=== PATIENT | male | born 1975 | race Caucasian/White ===

== ENCOUNTER 2016-11-22 09:19 | Emergency (ER) | payer OTHER ==
[2016-11-22 09:25] VITALS: BP 164/96; PULSE 88; RESP 17; TEMP 97.9
--- NOTE | 2016-11-22 09:44 | ED ---
General Adult HPI - General Chief complaint: Dental/Oral Stated complaint: DENTAL PAIN Time Seen by Provider: 11/22/16 09:31 Source: patient, RN notes reviewed, old records reviewed Mode of arrival: ambulatory Limitations: no limitations - History of Present Illness Initial comments: This is a 41-year-old male the ER for evaluation. This patient today presents for evaluation of dental pain. Severe dental pain with history of dental disease. Multiple tooth extractions in the past. Patient states pain is progressively worse 2 days no fevers no difficulty swallowing or difficulty opening his mouth, no swelling of his face. Patient is taking no medicines medications at home for pain - Related Data Home Medications Medication Instructions Recorded Confirmed No Known Home Medications [No 01/29/16 01/29/16 Known Home Medications] Allergies Allergy/AdvReac Type Severity Reaction Status Date / Time No Known Allergies Allergy Verified 01/29/16 15:05 Review of Systems ROS Statement: Those systems with pertinent positive or pertinent negative responses have been documented in the HPI. ROS Other: All systems not noted in ROS Statement are negative. Past Medical History Additional Past Medical History / Comment(s): kidney stones History of Any Multi-Drug Resistant Organisms: None Reported Additional Past Surgical History / Comment(s): lithrotripsy Past Psychological History: No Psychological Hx Reported Smoking Status: Current every day smoker Past Alcohol Use History: Occasional Past Drug Use History: None Reported General Exam Limitations: no limitations General appearance: alert, in no apparent distress Head exam: Present: atraumatic, normocephalic, normal inspection Eye exam: Present: normal appearance, PERRL, EOMI. Absent: scleral icterus, conjunctival injection, periorbital swelling ENT exam: Present: normal exam, mucous membranes moist, other (Diffuse dental caries, left upper molar tenderness) Neck exam: Present: normal inspection. Absent: tenderness, meningismus, lymphadenopathy Respiratory exam: Present: normal lung sounds bilaterally. Absent: respiratory distress, wheezes, rales, rhonchi, stridor Cardiovascular Exam: Present: regular rate, normal rhythm, normal heart sounds. Absent: systolic murmur, diastolic murmur, rubs, gallop, clicks GI/Abdominal exam: Present: soft, normal bowel sounds. Absent: distended, tenderness, guarding, rebound, rigid Extremities exam: Present: normal inspection, full ROM, normal capillary refill. Absent: tenderness, pedal edema, joint swelling, calf tenderness Back exam: Present: normal inspection Neurological exam: Present: alert, oriented X3, CN II-XII intact Psychiatric exam: Present: normal affect, normal mood Skin exam: Present: warm, dry, intact, normal color. Absent: rash Course Vital Signs 11/22/16 09:23 Temperature 97.9 F Pulse Rate 88 Respiratory 17 Rate Blood Pressure 164/96 O2 Sat by Pulse 99 Oximetry - Reevaluation(s) Reevaluation #1: 11/22/16 09:43 Pain is improved Medical Decision Making - Medical Decision Making 41 male to ED co dental pain with dental caries, presumed dental abscess w no collection, patient will dc with pain control and abx therapy Disposition Clinical Impression: Dental caries, Toothache, Dental abscess Disposition: HOME SELF-CARE Instructions: Dental Caries (ED), Dental Abscess (ED)
[2016-11-22] MEDS ORDERED: PENICILLIN VK 500MG STARTER 4 TAB BTL PO STA (09:50)
[2016-11-22] MEDS ORDERED: Acetaminophen-Codeine 300-30mg TAB PO STA (09:50)
[2016-11-22] MEDS ORDERED: PENICILLIN V POTASSIUM 250 MG TAB PO STA (09:50)
== END 2016-11-22 10:05 | disposition home or self-care (01) ==
LOC: EC 09:19
DX: K02.9 Dental caries, unspecified (principal); K04.7 Periapical abscess without sinus; F17.200 Nicotine dependence, unspecified, uncomplicated
CPT/HCPCS: 99282

== ENCOUNTER 2016-11-30 23:16 | Emergency (ER) | payer OTHER ==
[2016-11-30 23:25] VITALS: BP 158/90; PULSE 92; RESP 20; TEMP 97.9
[2016-11-30] MEDS ORDERED: HYDROcodone/APAP 5-325MG 1 EACH TAB PO STA (23:45)
--- NOTE | 2016-11-30 23:50 | ED ---
ENT HPI - General Chief complaint: Dental/Oral Stated complaint: Dental Pain-Revisit Time Seen by Provider: 11/30/16 23:41 Source: patient, RN notes reviewed Mode of arrival: ambulatory Limitations: no limitations - History of Present Illness Initial comments: 41-year-old male presents emergency 5 chief complaint of right-sided dental pain. Patient states this started about 2 days ago. Patient states he has a chronic history of dental problems. Patient states that it's use number what appears to be 29. Patient states he has any fever chills. There is no radiation the neck and no inability to open and close the mouth. Patient states there hasn't been any other symptoms in the patient. Patient states he does have a dense plan on Saturday.Patient denies any recent fever, chills, shortness of breath, chest pain, back pain, abdominal pain, nausea vomiting, numbness or tingling, dysuria or hematuria, constipation or diarrhea, headaches or visual changes, or any other current symptoms. - Related Data Home Medications Medication Instructions Recorded Confirmed Ibuprofen [Motrin] 200 - 400 mg PO Q6HR PRN 11/22/16 11/30/16 Previous Rx's Medication Instructions Recorded Acetaminophen with Codeine 1 tab PO Q4H PRN #20 tab 11/22/16 [Tylenol w/codeine #3] Penicillin V Potassium [Pen Vee K] 500 mg PO QID #40 tab 11/22/16 Hydrocodone/Acetaminophen [[place] 1 each PO Q6HR PRN #20 tab 11/30/16 5-325] Penicillin V Potassium [Pen Vee K] 500 mg PO TID #40 tab 11/30/16 Allergies Allergy/AdvReac Type Severity Reaction Status Date / Time No Known Allergies Allergy Verified 11/30/16 23:26 Review of Systems ROS Statement: Those systems with pertinent positive or pertinent negative responses have been documented in the HPI. ROS Other: All systems not noted in ROS Statement are negative. Past Medical History Additional Past Medical History / Comment(s): kidney stones History of Any Multi-Drug Resistant Organisms: None Reported Additional Past Surgical History / Comment(s): lithrotripsy Past Psychological History: No Psychological Hx Reported Smoking Status: Current every day smoker Past Alcohol Use History: Occasional Past Drug Use History: None Reported General Exam Limitations: no limitations General appearance: alert, in no apparent distress Expanded Ear exam: Present: normal external inspection Mouth exam: Present: normal external inspection Teeth exam: Present: dental caries (29), fractured tooth # (29), dental tenderness # (29), other (No abscess). Absent: gingival enlargement Neck exam: Present: normal inspection. Absent: tenderness, meningismus, lymphadenopathy Respiratory exam: Present: normal lung sounds bilaterally. Absent: respiratory distress, wheezes, rales, rhonchi, stridor Cardiovascular Exam: Present: regular rate, normal rhythm, normal heart sounds. Absent: systolic murmur, diastolic murmur, rubs, gallop, clicks Neurological exam: Present: alert, oriented X3, CN II-XII intact. Absent: motor sensory deficit Psychiatric exam: Present: normal affect, normal mood Skin exam: Present: warm, dry, intact, normal color. Absent: rash Course Vital Signs 11/30/16 23:24 Temperature 97.9 F Pulse Rate 92 Respiratory 20 Rate Blood Pressure 158/90 O2 Sat by Pulse 99 Oximetry Medical Decision Making - Medical Decision Making 41-year-old male presents emergency Department chief complaint of right-sided dental pain. At this time we will continue pain medication and antibiotics for the patient. As discussed. Dentist and return parameters. Patient stated he understood all questions were answered. He'll be discharged. Disposition Clinical Impression: Dental caries, Toothache Disposition: HOME SELF-CARE Condition: Stable Instructions: Dental Caries (ED) Additional Instructions: Please use medication as discussed. Please follow up with family doctor if symptoms have not improved over the next two days. Please return to the emergency room if your symptoms increase or worsen or for any other concerns. Prescriptions: Hydrocodone/Acetaminophen [[place] 5-325] 1 each PO Q6HR PRN #20 tab PRN Reason: Pain Penicillin V Potassium [Pen Vee K] 500 mg PO TID #40 tab Referrals: None,Stated [Primary Care Provider] - 1-2 days Maris Watts MD [STAFF PHYSICIAN] - 1-2 days Time of Disposition: 23:49
== END 2016-12-01 00:13 | disposition home or self-care (01) ==
LOC: EC 23:16
DX: K02.9 Dental caries, unspecified (principal); F17.200 Nicotine dependence, unspecified, uncomplicated
CPT/HCPCS: 99282

== ENCOUNTER 2017-02-24 11:06 | Emergency (ER) | payer OTHER ==
[2017-02-24] MEDS ORDERED: KETOROLAC 60 MG/2 ML VIAL IM STA (12:07)
[2017-02-24] MEDS ORDERED: DIAZEPAM 5 MG TAB PO STA (12:08)
[2017-02-24 12:23] VITALS: RESP 16; TEMP 98.4
--- NOTE | 2017-02-24 12:28 | ED ---
General Adult HPI - General Chief complaint: Back Pain/Injury Stated complaint: back pain Time Seen by Provider: 02/24/17 11:51 Source: patient, RN notes reviewed Mode of arrival: ambulatory Limitations: no limitations - History of Present Illness Initial comments: Patient 42-year-old male who presents emergency room today with a chief complaint of increased lower back pain over the last 6 days. He does admit some radiation down to the right leg to approximately the right knee area. Denies any bowel or bladder incontinence or retention. Denies any saddle anesthesia. Patient does admit that he was jumping out of the back of pickup truck landing flat-footed on his feet and felt this pain. Patient denies any other complaints or symptoms. States been trying ibuprofen at home with little relief the symptoms. She has not taken anything for the pain yet today. Patient denies any recent fever, chills, shortness of breath, chest pain, abdominal pain, nausea or vomiting, dysuria or hematuria, constipation or diarrhea, headaches or visual changes, or any other complaints. - Related Data Home Medications Medication Instructions Recorded Confirmed Ibuprofen [Motrin] 200 - 400 mg PO Q6HR PRN 11/22/16 11/30/16 Previous Rx's Medication Instructions Recorded Acetaminophen with Codeine 1 tab PO Q4H PRN #20 tab 11/22/16 [Tylenol w/codeine #3] Penicillin V Potassium [Pen Vee K] 500 mg PO QID #40 tab 11/22/16 Hydrocodone/Acetaminophen [[place] 1 each PO Q6HR PRN #20 tab 11/30/16 5-325] Penicillin V Potassium [Pen Vee K] 500 mg PO TID #40 tab 11/30/16 Baclofen 10 mg PO TID #20 tab 02/24/17 Ibuprofen [Motrin] 800 mg PO Q8HR #30 tab 02/24/17 Allergies Allergy/AdvReac Type Severity Reaction Status Date / Time No Known Allergies Allergy Verified 11/30/16 23:26 Review of Systems ROS Statement: Those systems with pertinent positive or pertinent negative responses have been documented in the HPI. ROS Other: All systems not noted in ROS Statement are negative. Past Medical History Additional Past Medical History / Comment(s): kidney stones History of Any Multi-Drug Resistant Organisms: None Reported Additional Past Surgical History / Comment(s): lithrotripsy Past Psychological History: No Psychological Hx Reported Smoking Status: Current every day smoker Past Alcohol Use History: Occasional Past Drug Use History: None Reported General Exam - General Exam Comments Initial Comments: General: The patient is awake and alert, in no distress, and does not appear acutely ill. Eye: Pupils are equal, round and reactive to light, extra-ocular movements are intact. No nystagmus. There is normal conjunctiva bilaterally. No signs of icterus. Ears, nose, mouth and throat: There are moist mucous membranes and no oral lesions. Neck: The neck is supple, there is no tenderness or JVD. Cardiovascular: There is a regular rate and rhythm. No murmur, rub or gallop is appreciated. Respiratory: Lungs are clear to auscultation, respirations are non-labored, breath sounds are equal. No wheezes, stridor, rales, or rhonchi. Musculoskeletal: Shows good range of motion. Has normal appearance of cervical , thoracic, lumbar spine. No step-offs forms appreciated. Does have mild tenderness lower lumbar from L2 to L5. Has increased paravertebral tenderness greater on the right with some muscle spasms. Strength 5/5. Sensation intact. Pulses equal bilaterally 2+. Neurological: A&O x 3. CN II-XII intact, There are no obvious motor or sensory deficits. Coordination appears grossly intact. Speech is normal. Skin: Skin is warm and dry and no rashes or lesions are noted. Psychiatric: Cooperative, appropriate mood & affect, normal judgment. Limitations: no limitations Course Vital Signs 02/24/17 02/24/17 11:16 12:23 Temperature 97.4 F L 98.4 F Pulse Rate 97 78 Respiratory 20 16 Rate Blood Pressure 132/83 143/70 O2 Sat by Pulse 97 97 Oximetry Medical Decision Making - Medical Decision Making Patient reexamined at this time shows no signs of distress. He does not that he 's feeling better after Toradol and Valium here in the emergency room. His x- rays reviewed and are unremarkable. Patient will be continued on anti- inflammatories and muscle laxer. Advised the muscle relaxant may make him [place]. Advised to follow-up family doctor for symptoms if there is no improvement for further evaluation possible MRI. Patient states understanding and is in agreement. Will be given on-call orthopedic doctor Disposition Clinical Impression: Acute low back pain Disposition: HOME SELF-CARE Condition: Good Instructions: Acute Low Back Pain (ED) Additional Instructions: Please use medication as discussed. Please follow-up with orthopedics / family doctor in the next 2 days of symptoms have not improved. Please return to emergency room if the symptoms increase or worsen or for any other concerns. Prescriptions: Baclofen 10 mg PO TID #20 tab Ibuprofen [Motrin] 800 mg PO Q8HR #30 tab Referrals: None,Stated [Primary Care Provider] - 1-2 days Dahiana Woodward DO [Doctor of Osteopathic Medicine] - 1-2 days Time of Disposition: 13:03
--- NOTE | 2017-02-24 12:56 | XR ---
EXAM TYPE: LUMBAR SPINE X RAY SERIES COMPARISON: NONE HISTORY: Pain TECHNIQUE: 3 views are submitted. FINDINGS: Alignment is anatomic. The pedicles are intact. The transverse processes are intact. There is no s pondylolysis or spondylolisthesis. IMPRESSION: 1. No acute process.
[2017-02-24 13:07] VITALS: BP 113/70; PULSE 68
== END 2017-02-24 13:06 | disposition home or self-care (01) ==
LOC: EC 11:06
DX: M62.830 Muscle spasm of back (principal); F17.200 Nicotine dependence, unspecified, uncomplicated
CPT/HCPCS: 72100; 99283; 96372; J1885